=== PATIENT | female | born 1990 | race Caucasian/White ===

== ENCOUNTER 2020-03-22 09:31 | Emergency (ER) | payer MEDICAID ==
[~2020-03-22] VITALS: Ht 175.3 cm; Wt 159.1 kg
[~2020-03-22 09:31] MED LIST: NITR100C6 PO
[2020-03-22 09:35] VITALS: BP 180/100
--- NOTE | 2020-03-22 10:22 | NUR ---
Dr Yeung at bedside.
[2020-03-22] MEDS ORDERED: LIDOcaine 1% W/epiNEPHrine 1:100,000 20ml vial SQ ONE (10:25)
[2020-03-22] MEDS ORDERED: ONDA4TAB6 PO (10:43)
[2020-03-22] MEDS ORDERED: HYDR-3972 PO (10:43)
== END 2020-03-22 11:07 | disposition home or self-care (01) ==
LOC: ER 09:32
DX: L02.212 Cutaneous abscess of back [any part, except buttock and flank] (principal); Z87.442 Personal history of urinary calculi; Z90.49 Acquired absence of other specified parts of digestive tract; Z79.899 Other long term (current) drug therapy; Z91.048 Other nonmedicinal substance allergy status
CPT/HCPCS: 10060; 99283